=== PATIENT | male | born 1990 | race African-American/Black ===

== ENCOUNTER 2020-07-30 14:42 | Emergency (ER) | payer OTHER ==
[~2020-07-30] VITALS: Ht 185.4 cm; Wt 68.0 kg
[2020-07-30 15:21] VITALS: BP 129/68
--- NOTE | 2020-07-30 16:38 | NUR ---
Patient discharged to home in stable condition. Written and verbal after care instructions given. Patient verbalizes understanding of instruction.
== END 2020-07-30 16:39 | disposition home or self-care (01) ==
LOC: ER 14:46
DX: K12.1 Other forms of stomatitis (principal); R59.0 Localized enlarged lymph nodes; Z76.0 Encounter for issue of repeat prescription; F20.9 Schizophrenia, unspecified; F41.9 Anxiety disorder, unspecified